=== PATIENT | female | born 1945 | race Caucasian/White ===

== ENCOUNTER → 2022-10-15 | Outpatient (CLI) | payer MEDICARE ==
[~2022-10-15] MED LIST: IOPAMIDOL 370 MG/ML 100 ML INFUS..BTL INJ ONE
[2022-10-15 10:04] LABS: CREATININE, SERUM 0.55 mg/dL (0.57-1.11)
== END ==
LOC: CT 09:23
PROVIDERS: ATTEND Obstetrics & Gynecology Gynecologic Oncology
DX: C56.2 Malignant neoplasm of left ovary (principal)
CPT/HCPCS: 36415; 74177; 82565; 84520; Q9967